=== PATIENT | female | born 1985 | race Caucasian/White ===

== ENCOUNTER 2017-03-22 17:51 | Emergency (ER) | payer OTHER | END 2017-03-22 19:27 | disposition home or self-care (01) | LOC: ER 17:51 | DX: G89.29 Other chronic pain (principal); R51 Headache; F41.9 Anxiety disorder, unspecified; Z88.8 Allergy status to other drugs, medicaments and biological substances | CPT/HCPCS: 96374; 96375; 99283; J1200; J1885; J2550 ==